=== PATIENT | female | born 1945 | race African-American/Black ===

== ENCOUNTER 2020-01-25 07:23 | Outpatient (CLI) | payer MEDICARE, MEDICAID ==
--- NOTE | 2020-01-25 12:05 | RAD ---
Chest 2 views HISTORY: Preop. FINDINGS: Cardiac silhouette and pulmonary vasculature are unremarkable. Mediastinum is midline. Mini mal linear atelectasis at the left lateral costophrenic angle. No lobar consolidation or evidence of pneumothorax. There are degenerative changes of the thoracic sp ine on the lateral view. IMPRESSION: No active cardiopulmonary abnormalities are demonstrated.
[2020-01-25 12:51] LABS: #Basophils 0.1 thou/uL (0.0-0.2); #Eosinphils 0.1 thou/uL (0.0-0.7); #Lymphocytes 2.6 thou/uL (1.20-3.40); #Monocytes 0.6 thou/uL (0.11-0.59); #Neutrophils 2.4 thou/uL (1.40-6.50); %Basophils 1.6 % (0.0-1.0); %Eosinophils 1.4 % (0.0-10.0); %Lymphocytes 45.1 % (21.0-51.0); %Neutrophils 40.9 % (42.0-75.0); Hemoglobin 12.8 g/dL (12.0-16.0); Mean Corpuscular HGB CONC 32.4 g/dL (32.0-36.0); Mean Corpuscular Hemoglobin 28.6 pg (27.0-31.0); Mean Corpuscular Volume 88.3 fL (78.0-98.0); Platelet Count 191 thou/uL (130-400); Red Blood Cell (RBC) Count 4.49 mill/uL (4.20-5.40); White Blood Cell (WBC) Count 5.8 thou/uL (4.8-10.8)
[2020-01-25 13:10] LABS: Anion Gap 10 mmol/L (10-20); BUN (Urea Nitrogen) 14 mg/dL (9.8-20.1); Calc. Creatinine Clearance 0 mL/min (70-130); Calcium 9.3 mg/dL (7.8-10.44); Carbon Dioxide 32 mmol/L (23-31); Chloride 103 mmol/L (98-107); Estimated GFR-MDRD 85; Glucose 75 mg/dL (83-110); Potassium 3.8 mmol/L (3.5-5.1); Sodium 141 mmol/L (136-145)
--- NOTE | 2020-01-26 11:38 | EKG ---
Test Reason : Blood Pressure : / mmHG Vent. Rate : 067 BPM Atrial Rate : 067 BPM P-R Int : 150 ms QRS Dur : 086 ms QT Int : 432 ms P-R-T Axes : 062 -16 063 degrees QTc Int : 456 ms Normal sinus rhythm Nonspecific T wave abnormality Abnormal ECG No previous ECGs available Confirmed by MARIA KEATING, DR. Chappell ([id number]) on 01/26/2020 11:37:59 AM Referred By: ALKA Confirmed By:DR. Ta SIFUENTES MD
== END 2020-01-25 07:24 | disposition home or self-care (01) ==
LOC: LABBT 07:23
PROVIDERS: ATTEND Specialist
DX: Z01.818 Encounter for other preprocedural examination (principal); M79.89 Other specified soft tissue disorders
CPT/HCPCS: 71046; 80048; 85025; 93005; 93010

== ENCOUNTER 2020-01-28 06:21 | Day surgery (SDC) | payer MEDICARE, MEDICAID ==
[2020-01-25 11:11] VITALS: BMI 28.5
[2020-01-28] MEDS ORDERED: Acetaminophen 500 MG TAB ONE (07:27)
[2020-01-28] MEDS ORDERED: Ketorolac Tromethamine 30 MG/ML VIAL ONE (07:28)
[2020-01-28] MEDS ORDERED: Fentanyl 100 MCG/2 ML VIAL ONE (08:44)
[2020-01-28] MEDS ORDERED: Lidocaine 1% w/Epinephrine 1:100K 20 ML VIAL ONE (08:48)
[2020-01-28] MEDS ORDERED: Bupivacaine 0.25% HCL 30 ML VIAL ONE (08:48)
[2020-01-28] MEDS ORDERED: Bacitracin Zinc Ointment 30 gm TUBE ONE (09:49)
[2020-01-28] MEDS ORDERED: Lidocaine 1% PF 5 ML VIAL ONE (11:02)
[2020-01-28] MEDS ORDERED: Rocuronium Bromide 10 MG/ML (10ML VIAL) ONE (11:02)
[2020-01-28] MEDS ORDERED: Succinylcholine Chloride 20 MG/ML 10 ml SYRINGE FS ONE (11:02)
[2020-01-28] MEDS ORDERED: Ondansetron PF 4 MG/2 ML Vial ONE (11:02)
[2020-01-28] MEDS ORDERED: Dexamethasone 20 MG/5 ML VIAL ONE (11:02)
[2020-01-28] MEDS ORDERED: PROPOFOL 200 MG/20 ML VIAL ONE (11:02)
--- NOTE | 2020-01-28 22:04 | OP ---
DATE OF PROCEDURE: 01/28/2020 PREOPERATIVE DIAGNOSIS: 17 cm right posterior shoulder soft tissue tumor. POSTOPERATIVE DIAGNOSIS: 17 cm right posterior shoulder soft tissue tumor with suspected lipoma. PROCEDURE PERFORMED: Excision of 17 cm right posterior shoulder soft tissue tumor with drain placement. ANESTHESIA: General endotracheal. INDICATIONS: The patient is a 74-year-old black female. She has a large bulging mass on the posterior aspect of her right shoulder. This has the appearance and consistency of a lipoma. She was taken to the operating room at this time for excision. DESCRIPTION OF OPERATION: Informed consent was obtained, the patient was taken to the operating room, where general anesthesia was obtained with the patient in supine position. She was rolled over into left lateral decubitus position using a garrison bag. The area was prepped with ChloraPrep and draped in sterile fashion. Local anesthetic was infiltrated circumferentially using a mixture of 0.5% Marcaine and 1% lidocaine with epinephrine. An elliptical incision was created transversely across the mass. Dissection was carried through skin and subcutaneous tissue. The underlying fatty mass was dissected circumferentially down to the underlying fascia and removed intact. The skin flaps that were raised superiorly and inferiorly were in areas thinner than that I would have preferred, however, the lipomatous tissue came very close to the undersurface of the dermis in some areas. Meticulous hemostasis was obtained. Additional local anesthetic was infiltrated. A #19 round fluted drain was placed within the wound and brought out laterally and inferiorly where it was secured with a 3-0 nylon suture. The wound was closed in layers with running suture of 3-0 Vicryl followed by a running suture of 3-0 Prolene. Antibiotic ointment and dry gauze dress were applied. Tegaderm was placed over the drain exit site. There were no complications. The patient tolerated the procedure well and was taken to the recovery room in stable condition. Job ID: [id number]
== END 2020-01-28 13:00 | disposition home or self-care (01) ==
LOC: SDC 06:21
PROVIDERS: ATTEND Specialist
PROC: 0JBD0ZZ Excision of Right Upper Arm Subcutaneous Tissue and Fascia, Open Approach (ICD-10-PCS; principal; 2020-01-28)
DX: M79.89 Other specified soft tissue disorders (principal); M19.90 Unspecified osteoarthritis, unspecified site; J45.909 Unspecified asthma, uncomplicated; I10 Essential (primary) hypertension; E89.0 Postprocedural hypothyroidism; Z79.82 Long term (current) use of aspirin; Z79.899 Other long term (current) drug therapy
CPT/HCPCS: 88304; J0690; J1100; J1885; J2001; J2405; J2704; J3010; S0020

== ENCOUNTER 2023-02-11 13:24 | Outpatient (CLI) | payer MEDICAID, OTHER | END 2023-02-11 13:25 | disposition home or self-care (01) | LOC: BICMAMMO 13:24 | PROVIDERS: ATTEND Internal Medicine | DX: M85.89 Other specified disorders of bone density and structure, multiple sites (principal); M85.80 Other specified disorders of bone density and structure, unspecified site | CPT/HCPCS: 77080 ==